=== PATIENT | male | born 1955 | race Two or more races ===

== ENCOUNTER 2022-04-20 11:09 | Emergency (ER) | payer OTHER ==
[~2022-04-20] VITALS: Ht 170.2 cm; Wt 74.4 kg
[2022-04-20] MEDS ORDERED: CLONAZEPAM1 MG (11:26)
== END 2022-04-20 14:22 | disposition home or self-care (01) ==
LOC: ER 11:09
DX: J04.0 Acute laryngitis (principal); Z20.828 Contact with and (suspected) exposure to other viral communicable diseases